=== PATIENT | female | born 1995 | race Caucasian/White ===

== ENCOUNTER 2019-12-08 12:20 | Emergency (ER) | payer BC ==
[~2019-12-08] VITALS: Ht 165.1 cm; Wt 113.6 kg
[2019-12-08] MEDS ORDERED: ACET-3067 PO (12:59)
[2019-12-08 13:22] VITALS: BP 133/82
== END 2019-12-08 13:23 | disposition home or self-care (01) ==
LOC: ER 12:21
DX: S93.402A Sprain of unspecified ligament of left ankle, initial encounter (principal); Z79.899 Other long term (current) drug therapy; W51.XXXA Accidental striking against or bumped into by another person, initial encounter; Y93.64 Activity, baseball; Y92.89 Other specified places as the place of occurrence of the external cause; Y99.8 Other external cause status
CPT/HCPCS: 73564; 73610; 99284